=== PATIENT | male | born 1995 | race Two or more races ===

== ENCOUNTER 2019-12-14 11:33 | Emergency (ER) | payer SELFPAY ==
[~2019-12-14] VITALS: Ht 157.5 cm; Wt 67.4 kg
[2019-12-14 11:45] VITALS: BP 127/58
[2019-12-14] MEDS ORDERED: DIPHTH,PERTUSS(ACELL),TET TOX 0.5 ML DISP.SYRIN. VAX IM ONE (12:15)
--- NOTE | 2019-12-14 12:33 | PHYS DOC ---
Past Medical History Past Medical History: No Pertinent History Past Surgical History: No Surgical History Smoking Status: Never Smoker Alcohol Use: None Adult General Chief Complaint Chief Complaint: LACERATION/AVULSION HPI HPI Patient is a 24 year old male who presents to the ED today complaining of right chin laceration, patient reports being cut accidentally by a piece of metal at work. Patient is Occitan-speaking and interpretation is provided by a friend Review of Systems Review of Systems Constitutional: Denies fever or chills [] Musculoskeletal: Denies back pain or joint pain [] Integument: right chin laceration Neurologic: Denies headache, focal weakness or sensory changes [] All other systems were reviewed and found to be within normal limits, except as documented in this note. Current Medications Current Medications Current Medications Medications (Trade) Dose Ordered Sig/Genet Start Time Stop Time Status Last Admin Dose Admin Diphtheria/ Tetanus/Acell Pertussis (Boostrix) 0.5 ml ONCE ONCE 12/14/19 12:15 12/14/19 12:16 DC 12/14/19 12:24 0.5 ML Allergies Allergies Allergies Coded Allergies Type Severity Reaction Last Updated Verified Penicillins Allergy Intermediate 12/14/19 Yes Physical Exam Physical Exam Constitutional: Well developed, well nourished, no acute distress, non-toxic appearance. [] Skin: Warm, dry, right souza with a superficial laceration approximately 2 cm long and not cutting through. Back: No tenderness, no CVA tenderness. [] Extremities: No tenderness, no cyanosis, no clubbing, ROM intact, no edema. [] Neurologic: Alert and oriented X 3, normal motor function, normal sensory function, no focal deficits noted. [] Psychologic: Affect normal, judgement normal, mood normal. [] Current Patient Data Vital Signs Vital Signs Date Time Temp Pulse Resp B/P (MAP) Pulse Ox O2 Delivery O2 Flow Rate FiO2 12/14/19 11:45 97.5 59 19 127/58 (81) 97 Room Air 97.5 EKG EKG [] Radiology/Procedures Radiology/Procedures Indication: Right chin laceration Procedure: The patient was placed in the appropriate position and anesthesia around the laceration was not applicable. The area was then cleaned with 20 ml of NS. The laceration was closed with Dermabond and covered with Steri-Strips Total repaired wound length: Approximately 2 cm Other Items: None ITEMS] The patient tolerated the procedure very well Complications: None Course & Med Decision Making Course & Med Decision Making Pertinent Labs and Imaging studies reviewed. (See chart for details) This is a 24-year-old male patient presented to the ED today with chin laceration that was closed by me as noted in procedures. Tetanus updated. Wound care instructions and return precautions provided. Dragon Disclaimer Dragon Disclaimer This electronic medical record was generated, in whole or in part, using a voice recognition dictation system. Departure Departure Impression: Primary Impression: Chin laceration Disposition: 01 HOME, SELF-CARE Condition: STABLE Referrals: NO PCP (PCP) follow up with your doctor in 1-2 weeks as needed Patient Instructions: Facial Laceration, [id number] Additional Instructions: You have chin laceration that was closed with Steri-Strips. You can shower. Keep the area clean and dry. The Steri-Strips will fall off on their own. Apply Neosporin to the area once the Steri-Strips fall off. Monitor the area for any signs of infection including but not limited to increased redness, warmth, yellow drainage from the areas and return to the ED if they occur. You were given a tetanus vaccine in the ED. Problem Qualifiers Primary Impression: Chin laceration Encounter type: initial encounter Qualified Codes: S01.81XA - Laceration without foreign body of other part of head, initial encounter VANESSA JOEL APRN Dec 14, 2019 12:33
== END 2019-12-14 12:36 | disposition home or self-care (01) ==
LOC: ER 11:33
DX: S01.81XA Laceration without foreign body of other part of head, initial encounter (principal); Z88.0 Allergy status to penicillin; W26.8XXA Contact with other sharp object(s), not elsewhere classified, initial encounter; Y93.89 Activity, other specified; Y92.89 Other specified places as the place of occurrence of the external cause; Y99.0 Civilian activity done for income or pay
CPT/HCPCS: 12011; 90471; 90715; 99283